=== PATIENT | female | born 1970 | race Caucasian/White ===

== ENCOUNTER 2022-07-31 06:46 | Day surgery (SDC) | payer OTHER ==
[~2022-07-31] VITALS: Ht 174 cm; Wt 86.2 kg
[~2022-07-31 06:46] MED LIST: ACID REDUCER20 M1 PO; CRESTOR10 MG PO; PEPCID AC10 MG PO; SYNTHROID200 MCG PO
== END 2022-07-31 17:10 | disposition home or self-care (01) ==
LOC: CIR.AMB 06:46
PROVIDERS: ATTEND Specialist
DX: N93.9 Abnormal uterine and vaginal bleeding, unspecified (principal); N85.8 Other specified noninflammatory disorders of uterus; E78.5 Hyperlipidemia, unspecified; F17.210 Nicotine dependence, cigarettes, uncomplicated; E03.9 Hypothyroidism, unspecified; D64.9 Anemia, unspecified